=== PATIENT | male | born 1995 | race Caucasian/White ===

== ENCOUNTER 2016-08-02 12:43 | Emergency (ER) | payer OTHER ==
[~2016-08-02] VITALS: Ht 170.2 cm; Wt 110.7 kg
[~2016-08-02 12:43] MED LIST: INSUINJ2 SC; INSUINJ47 SC
[2016-08-02 12:59] VITALS: BP 138/98
[2016-08-02 13:20] LABS: Basophils # (auto) 0 uL; Basophils % (auto) 0.4 % (0.0-2.0); Eosinophils # (auto) 0.1 uL; Eosinophils % (auto) 1.4 % (0.0-7.0); Hematocrit 48.3 % (41.0-53.0); Lymphocytes % (auto) 34.4 % (10.0-50.0); Mean Corpuscular Hemoglobin 31.4 pg (28.0-32.0); Mean Corpuscular Hgb Conc. 35.2 g/dL (32.0-36.0); Mean Corpuscular Volume 89.2 fL (80.0-100.0); Monocytes # (auto) 0.5 uL; Monocytes % (auto) 8.3 % (0.0-12.0); Neutrophils # (auto) 3.2 uL; Neutrophils % (auto) 55.5 % (37.0-80.0); Platelet Count (auto) 227 10^3/uL (140-450); Red Cell Distribution Width 13.1 % (11.6-16.0); White Blood Cell 5.7 10^3/uL (4.4-10.8)
[2016-08-02 13:37] LABS: Albumin 3.8 g/dL (3.4-5.0); BUN/Creatinine Ratio 15.5; Calcium 8.6 mg/dL (8.5-10.1); Potassium 4.1 mmol/L (3.5-5.1)
[2016-08-02 13:40] LABS: Bilirubin, Total 1.1 mg/dL (0.2-1.0); Total Protein 7.3 g/dL (6.4-8.2)
== END 2016-08-02 16:57 | disposition left against medical advice (07) ==
LOC: ER 12:43
DX: R73.9 Hyperglycemia, unspecified (principal); R42 Dizziness and giddiness; Z53.21 Procedure and treatment not carried out due to patient leaving prior to being seen by health care provider
CPT/HCPCS: 36415; 80053; 82962; 85025

== ENCOUNTER 2017-01-10 19:53 | Emergency (ER) | payer OTHER ==
[~2017-01-10] VITALS: Ht 170.2 cm; Wt 110.2 kg
[2017-01-10 21:34] LABS: Basophils # (auto) 0 uL; Basophils % (auto) 0.4 % (0.0-2.0); CONDITION Y; Eosinophils # (auto) 0.1 uL; Eosinophils % (auto) 1.8 % (0.0-7.0); Hematocrit 44.7 % (41.0-53.0); Hemoglobin 15.7 g/dL (13.5-17.5); Lymphocytes # (auto) 1.9 uL; Lymphocytes % (auto) 34.8 % (10.0-50.0); Mean Corpuscular Hemoglobin 30.9 pg (28.0-32.0); Mean Corpuscular Hgb Conc. 35.2 g/dL (32.0-36.0); Mean Corpuscular Volume 87.8 fL (80.0-100.0); Mean Platelet Volume 8.1 fL (6.9-10.8); Monocytes # (auto) 0.5 uL; Monocytes % (auto) 8.9 % (0.0-12.0); Neutrophils % (auto) 54.1 % (37.0-80.0); Platelet Count (auto) 223 10^3/uL (140-450); Red Cell Distribution Width 13.8 % (11.8-14.3); White Blood Cell 5.6 10^3/uL (4.4-10.8)
[2017-01-10 21:58] LABS: Albumin 3.6 g/dL (3.4-5.0); BUN/Creatinine Ratio 13.1; Bilirubin, Total 0.5 mg/dL (0.2-1.0); Calcium 8.6 mg/dL (8.5-10.1); Potassium 4.5 mmol/L (3.5-5.1); Total Protein 7.3 g/dL (6.4-8.2)
[2017-01-10] MEDS ORDERED: InsuLIN REG 1unit/0.01ml Soln (100units/ml) ONE (22:28)
[2017-01-10] MEDS ORDERED: InsuLIN REG 1unit/0.01ml Soln (100units/ml) IV ONE (22:30)
[2017-01-10] MEDS ORDERED: SODIUM CHLORIDE 0.9% 1,000 ML IV ONE ×2 (22:45→23:00)
[2017-01-11 03:02] VITALS: BP 154/91
[2017-01-11] MEDS ORDERED: LEVOFLOXACIN 500MG 100 ML IV ONE (03:30)
== END 2017-01-11 03:56 | disposition home or self-care (01) ==
LOC: ER 20:05
DX: J06.9 Acute upper respiratory infection, unspecified (principal); E11.65 Type 2 diabetes mellitus with hyperglycemia; R10.9 Unspecified abdominal pain; K21.9 Gastro-esophageal reflux disease without esophagitis; Z88.0 Allergy status to penicillin
CPT/HCPCS: 36415; 74176; 80053; 82150; 82962; 83690; 85025; 96361; 96365; 96375; 99285; J1815; J1956; J7030

== ENCOUNTER 2017-07-18 18:58 | Emergency (ER) | payer MEDICAID, OTHER ==
[~2017-07-18] VITALS: Ht 170.2 cm; Wt 110.7 kg
[2017-07-18 20:36] VITALS: BP 153/87
== END 2017-07-18 23:12 | disposition home or self-care (01) ==
LOC: ER 19:01
DX: S43.025A Posterior dislocation of left humerus, initial encounter (principal); K21.9 Gastro-esophageal reflux disease without esophagitis; E11.9 Type 2 diabetes mellitus without complications; Z79.4 Long term (current) use of insulin; Z88.0 Allergy status to penicillin; W19.XXXA Unspecified fall, initial encounter; Y93.89 Activity, other specified; Y92.89 Other specified places as the place of occurrence of the external cause; Y99.8 Other external cause status
CPT/HCPCS: 23650; 73020; 73030

== ENCOUNTER → 2019-12-05 | Emergency (ER) | payer MEDICAID ==
[~2019-12-05] VITALS: Ht 172.7 cm; Wt 105.2 kg
[~2019-12-05] MED LIST changes: +MORPHINE SULFATE 4 MG/ML SYR/VIAL IV ONE; +ONDANSETRON HCL 4 MG/2 ML VIAL IV ONE
[2019-12-05 23:05] LABS: Urine Bacteria NONE SEEN /hpf (None Seen); Urine Blood Negative /uL (Negative); Urine Specific Gravity 1.032 (1.001-1.035); Urine WBC <1 /hpf (0 - 3)
[2019-12-05 23:41] LABS: Basophils # (auto) 0 10 ^3/uL (0-0.2); Basophils % (auto) 0.8 % (0.0-2.0); Eosinophils # (auto) 0.1 10 ^3/uL (0-0.8); Eosinophils % (auto) 1.8 % (0.0-7.0); Hematocrit 45.6 % (41.0-53.0); Hemoglobin 16.1 g/dL (13.5-17.5); Lymphocytes # (auto) 2.1 10 ^3/uL (0.4-5.4); Lymphocytes % (auto) 43.7 % (10.0-50.0); Mean Corpuscular Hemoglobin 33.9 pg (28.0-32.0); Mean Corpuscular Hgb Conc. 35.3 g/dL (32.0-36.0); Mean Corpuscular Volume 95.9 fL (80.0-100.0); Monocytes # (auto) 0.4 10 ^3/uL (0-1.3); Neutrophils # (auto) 2.2 10 ^3/uL (1.6-8.6); Neutrophils % (auto) 44.7 % (37.0-80.0); Nucleated Red Blood Cells % 0.1 %; Platelet Count (auto) 174 10^3/uL (140-450); Red Blood Cells 4.76 10^6/uL (4.5-5.90); Red Cell Distribution Width 14.5 % (11.8-14.3); White Blood Cell 4.9 10^3/uL (4.4-10.8)
[2019-12-05 23:58] LABS: Albumin 3.6 g/dL (3.4-5.0); BUN/Creatinine Ratio 14.5; Calcium 8.5 mg/dL (8.5-10.1); Potassium 3.8 mmol/L (3.5-5.1)
[2019-12-06] LABS: Bilirubin, Total 0.7 mg/dL (0.2-1.0); Total Protein 7.1 g/dL (6.4-8.2)
[2019-12-06 02:00] VITALS: BP 114/72
== END | disposition home or self-care (01) ==
LOC: ER 21:22
DX: K58.9 Irritable bowel syndrome, unspecified (principal); E11.65 Type 2 diabetes mellitus with hyperglycemia; Z88.0 Allergy status to penicillin; Z88.8 Allergy status to other drugs, medicaments and biological substances
CPT/HCPCS: 36415; 74176; 80053; 81001; 82150; 83690; 85025; 96374; 96375; 96376; 99284; J2270; J2405

== ENCOUNTER 2022-12-10 08:13 | Inpatient (IN) | payer MEDICAID ==
[~2022-12-10] VITALS: Ht 170.2 cm; Wt 106.5 kg
[~2022-12-10 08:13] MED LIST changes: -MORPHINE SULFATE 4 MG/ML SYR/VIAL IV ONE; -ONDANSETRON HCL 4 MG/2 ML VIAL IV ONE
[2022-12-10 09:00] LABS: Urine Bacteria FEW /hpf (None Seen); Urine Blood Negative /uL (Negative); Urine Clarity Clear (Clear); Urine Color Yellow (Yellow); Urine Mucus FEW (None Seen); Urine Protein, UAD 1+ (Negative); Urine Specific Gravity 1.029 (1.001-1.035); Urine Sperm PRESENT /hpf (None Seen); Urine Urobilinogen Normal (Negative); Urine WBC <1 /hpf (0 - 3); Urine pH 5.5 (5.0-8.0)
[2022-12-10 09:05] LABS: Basophils # (auto) 0.1 10 ^3/uL (0-0.2); Basophils % (auto) 0.7 % (0.0-2.0); Eosinophils # (auto) 0.2 10 ^3/uL (0-0.8); Eosinophils % (auto) 1.8 % (0.0-7.0); Hematocrit 50.1 % (41.0-53.0); Hemoglobin 17.4 g/dL (13.5-17.5); Lymphocytes # (auto) 2.1 10 ^3/uL (0.4-5.4); Lymphocytes % (auto) 23.5 % (10.0-50.0); Mean Corpuscular Hemoglobin 33.2 pg (28.0-32.0); Mean Corpuscular Hgb Conc. 34.7 g/dL (32.0-36.0); Mean Corpuscular Volume 95.5 fL (80.0-100.0); Monocytes # (auto) 0.6 10 ^3/uL (0-1.3); Nucleated Red Blood Cells % 1.2 %; Red Blood Cells 5.24 10^6/uL (4.5-5.90); Red Cell Distribution Width 13.6 % (11.8-14.3); White Blood Cell 8.9 10^3/uL (4.4-10.8)
[2022-12-10 09:27] LABS: Albumin 3.2 g/dL (3.4-5.0); Calcium 9.6 mg/dL (8.5-10.1); Potassium 4.2 mmol/L (3.5-5.1)
[2022-12-10 09:31] LABS: BUN/Creatinine Ratio 10.5 (10.0-20.0); Bilirubin, Total 0.8 mg/dL (0.2-1.0); Total Protein 7.8 g/dL (6.4-8.2)
[2022-12-10] MEDS ORDERED: IBUPROFEN 600 MG TAB PO ONE (10:30)
[2022-12-10 10:45] VITALS: BP 151/119; PULSE 97; RESP 18; TEMP 98.2; O2SAT 100
[2022-12-10] MEDS ORDERED: SODIUM CHLORIDE 0.9% 1,000 ML IV ONE (11:00)
[2022-12-10] MEDS ORDERED: VANCOMYCIN 1GM/250ML 250 ML IV ONE (11:00)
[2022-12-10] MEDS ORDERED: DEXTROSE (50%) 50ML SYRG IV PRN (13:15)
[2022-12-10] MEDS ORDERED: PIPERACILLIN-TAZOB 3.375GM 100 ML IV ONE (13:15)
[2022-12-10] MEDS ORDERED: NITROGLYCERIN 0.4 MG SL TAB SL PRN (13:15)
[2022-12-10] MEDS ORDERED: MORPHINE SULFATE INJ 2 MG/ml SYRG IV PRN ×2 (13:15→14:30)
[2022-12-10] MEDS ORDERED: INSULIN LANTUS (GLARGINE) 1 /0.01ml (100units/ml) SC SCH (14:00)
[2022-12-10 14:23] LABS: INR 1.05 (0.9-1.15); Partial Thromboplastin Time 25.2 SEC (24.5-34.5)
[2022-12-10] MEDS ORDERED: ACETAMINOPHEN 325 MG TAB PO PRN (14:30)
[2022-12-10] MEDS ORDERED: PANTOPRAZOLE 40 MG TAB PO ONE (14:30)
[2022-12-10] MEDS ORDERED: IBUPROFEN 400 MG TAB PO PRN (14:30)
[2022-12-10] MEDS ORDERED: VANCOMYCIN PER PHARMACY 0 MG IV SCH (14:30)
[2022-12-10] MEDS ORDERED: ACCU-CHEK COMFORT CURVE STRIP VI SCH (18:00)
[2022-12-10] MEDS ORDERED: InsuLIN REG 1unit/0.01ml Soln (100units/ml) SC SCH (18:00)
[2022-12-10] MEDS ORDERED: VANCOMYCIN 1GM/250ML 250 ML IV SCH (18:00)
[2022-12-10] MEDS ORDERED: PIPERACILLIN-TAZOB 3.375GM 100 ML IV SCH (19:00)
[2022-12-11] MEDS ORDERED: PANTOPRAZOLE 40 MG TAB PO SCH (10:00)
== END 2022-12-10 15:12 | disposition left against medical advice (07) | DRG 383 ==
LOC: ER 08:13 → OVERFLOW 13:25
PROVIDERS: ADMIT Internal Medicine; ATTEND Internal Medicine
DX: L02.416 Cutaneous abscess of left lower limb (principal); E11.9 Type 2 diabetes mellitus without complications; K21.9 Gastro-esophageal reflux disease without esophagitis; Z53.29 Procedure and treatment not carried out because of patient's decision for other reasons; F17.210 Nicotine dependence, cigarettes, uncomplicated; M10.9 Gout, unspecified; Z88.8 Allergy status to other drugs, medicaments and biological substances; Z88.0 Allergy status to penicillin
CPT/HCPCS: 36415; 73718; 80053; 81001; 82550; 82962; 83036; 85025; 85610; 85730; 87040; 93926; 93971; 96365; 96367; G0378; J1815; J2543

== ENCOUNTER 2022-12-11 18:05 | Inpatient (IN) | payer MEDICAID ==
[~2022-12-11] VITALS: Ht 170.2 cm; Wt 112.0 kg
[2022-12-11] MEDS ORDERED: ONDANSETRON ODT 4 MG TAB PO ONE (20:00)
[2022-12-11] MEDS ORDERED: HYDROmorphone HCL 2 MG/ML VL/or syr IM ONE (20:00)
[2022-12-11 20:49] LABS: Hematocrit 46.2 % (41.0-53.0); Hemoglobin 16.3 g/dL (13.5-17.5); Mean Corpuscular Hemoglobin 33.5 pg (28.0-32.0); Mean Corpuscular Hgb Conc. 35.2 g/dL (32.0-36.0); Mean Corpuscular Volume 95.3 fL (80.0-100.0); Red Blood Cells 4.85 10^6/uL (4.5-5.90); Red Cell Distribution Width 14.1 % (11.8-14.3); White Blood Cell 9.3 10^3/uL (4.4-10.8)
[2022-12-11 20:55] LABS: Albumin 3.4 g/dL (3.4-5.0); Calcium 9.4 mg/dL (8.5-10.1); Potassium 4.2 mmol/L (3.5-5.1)
[2022-12-11 20:58] LABS: Bilirubin, Total 0.5 mg/dL (0.2-1.0); Total Protein 7.1 g/dL (6.4-8.2)
[2022-12-11 21:03] LABS: Band Neutrophils % (manual) 0; Basophils % (manual) 0 (0.0-2.0); Blast Cells 0; Metamyelocytes % 0; Myelocytes % 0; Promyelocytes % 0; Reactive Lymphocytes 0
[2022-12-11] MEDS ORDERED: NITROGLYCERIN 0.4 MG SL TAB SL PRN (22:45)
[2022-12-11] MEDS ORDERED: DEXTROSE (50%) 50ML SYRG IV PRN (22:45)
[2022-12-11] MEDS ORDERED: DOCUSATE SOD 100 MG CAP PO PRN (22:45)
[2022-12-11] MEDS ORDERED: ONDANSETRON HCL 4 MG/2 ML VIAL IV PRN (22:45)
[2022-12-11] MEDS ORDERED: ACETAMINOPHEN 325 MG TAB PO PRN (22:45)
[2022-12-11] MEDS ORDERED: MORPHINE SULFATE INJ 2 MG/ml SYRG IV PRN (22:45)
[2022-12-11] MEDS ORDERED: VANCOMYCIN PER PHARMACY 0 MG IV SCH (22:45)
[2022-12-11] MEDS ORDERED: HYDROcodone-ACET 5/325MG TAB PO PRN (22:45)
[2022-12-11 23:04] LABS: Eosinophils % (manual) 1 (0-7); Lymphocytes % (manual) 38 (10.0-50.0); Monocytes % (manual) 6 (0-12); Platelet Estimate Adequate
[2022-12-11] MEDS ORDERED: VANCOMYCIN 1GM/250ML 250 ML IV ONE (23:30)
[2022-12-12] VITALS (8 sets, daily range): BP systolic 130–151; BP diastolic 91–99; PULSE 74–93; RESP 17–20; TEMP 97.8–98; O2SAT 95–98
[2022-12-12] MEDS ORDERED: HYDROmorphone HCL 2 MG/ML VL/or syr IV ONE
[2022-12-12 05:34] LABS: Albumin 3.2 g/dL (3.4-5.0); BUN/Creatinine Ratio 11.3 (10.0-20.0); Calcium 8.9 mg/dL (8.5-10.1); Potassium 3.9 mmol/L (3.5-5.1)
[2022-12-12 05:37] LABS: Bilirubin, Total 0.5 mg/dL (0.2-1.0)
[2022-12-12] MEDS: SODIUM CHLOR 0.9% PF (SALINE LOCK) 10ML VIAL/SYR IV SCH ×3 (06:09→21:37)
[2022-12-12] MEDS: ACCU-CHEK COMFORT CURVE STRIP VI SCH ×4 (06:13→22:00)
[2022-12-12] MEDS: InsuLIN REG 1unit/0.01ml Soln (100units/ml) SC SCH ×4 (06:18→22:58)
[2022-12-12] MEDS ORDERED: CEFEPIME 1GM/ 50ML 50 ML IV ONE (08:15)
[2022-12-12] MEDS: ZINC SULFATE 220mg CAP or TAB PO SCH (09:34)
[2022-12-12] MEDS: ASCORBIC ACID 500 MG TAB PO SCH ×2 (09:34→21:35)
[2022-12-12 10:21] LABS: Urine Bacteria NONE SEEN /hpf (None Seen); Urine Blood Negative /uL (Negative); Urine Clarity Clear (Clear); Urine Color Yellow (Yellow); Urine Mucus FEW (None Seen); Urine Protein, UAD Negative (Negative); Urine Urobilinogen Normal (Negative); Urine WBC 2 /hpf (0 - 3)
[2022-12-12] MEDS: HYDROmorphone HCL 2 MG/ML VL/or syr IV PRN ×2 (10:26→17:36)
[2022-12-12] MEDS: VANCOMYCIN 1GM/250ML 250 ML IV SCH ×2 (10:26→18:22)
[2022-12-12 10:28] LABS: Alcohol, Urine < 3.0 mg/dL (0-10); Amphetamine Screen, Urine NEGATIVE (NEGATIVE); Barbiturate Scree,Urine NEGATIVE (NEGATIVE); Benzodiazephine Screen, Urine NEGATIVE (NEGATIVE); Cannabinoid Screen, Urine NEGATIVE (NEGATIVE); Cocaine Screen, Urine NEGATIVE (NEGATIVE); Opiate Scree,Urine NEGATIVE (NEGATIVE); Phencyclidine Screen, Urine NEGATIVE (NEGATIVE)
[2022-12-12] MEDS: MEROPENEM 1GM IVPB 100 ML IV SCH ×2 (12:43→22:11)
[2022-12-12 13:29] LABS: Basophils # (auto) 0 10 ^3/uL (0-0.2); Basophils % (auto) 0.4 % (0.0-2.0); Eosinophils # (auto) 0.2 10 ^3/uL (0-0.8); Eosinophils % (auto) 2.1 % (0.0-7.0); Hematocrit 47.3 % (41.0-53.0); Hemoglobin 16.7 g/dL (13.5-17.5); Lymphocytes % (auto) 23.3 % (10.0-50.0); Mean Corpuscular Hemoglobin 33.5 pg (28.0-32.0); Mean Corpuscular Hgb Conc. 35.2 g/dL (32.0-36.0); Monocytes # (auto) 0.6 10 ^3/uL (0-1.3); Monocytes % (auto) 6.9 % (0.0-12.0); Neutrophils # (auto) 5.8 10 ^3/uL (1.6-8.6); Neutrophils % (auto) 67.3 % (37.0-80.0); Nucleated Red Blood Cells % 0.1 %; Red Blood Cells 4.97 10^6/uL (4.5-5.90); Red Cell Distribution Width 13.8 % (11.8-14.3); White Blood Cell 8.6 10^3/uL (4.4-10.8)
[2022-12-12] MEDS: SODIUM CHLORIDE 0.9% 1,000 ML IV SCH (13:38)
[2022-12-12] MEDS ORDERED: CEFEPIME 1GM/ 50ML 50 ML IV SCH (14:00)
[2022-12-12] MEDS: KETOROLAC TROMETH 30 MG/ML 1ML VIAL IV SCH ×2 (14:43→21:36)
[2022-12-12 15:18] LABS: Erythrocyte Sedimentation Rate 18 mm/hr (0-20)
[2022-12-12] MEDS ORDERED: CYANOCOBALAMIN (B-12) 1000 MCG/1 ML VIAL IM ONE (16:45)
[2022-12-12] MEDS ORDERED: LEVOTHYROXINE SODIUM 50 MCG TAB PO ONE (16:45)
[2022-12-13] VITALS (7 sets, daily range): BP systolic 134–154; BP diastolic 75–98; PULSE 75–86; RESP 18–22; TEMP 97.4–98.5; O2SAT 92–100
[2022-12-13] MEDS: VANCOMYCIN 1GM/250ML 250 ML IV SCH ×4 (01:40→22:25)
[2022-12-13] MEDS: SODIUM CHLORIDE 0.9% 1,000 ML IV SCH ×2 (02:50→17:38)
[2022-12-13] MEDS: MEROPENEM 1GM IVPB 100 ML IV SCH ×3 (03:39→19:17)
[2022-12-13] MEDS: KETOROLAC TROMETH 30 MG/ML 1ML VIAL IV SCH ×3 (05:13→21:20)
[2022-12-13] MEDS: SODIUM CHLOR 0.9% PF (SALINE LOCK) 10ML VIAL/SYR IV SCH ×3 (05:16→21:20)
[2022-12-13 06:04] LABS: Potassium 3.9 mmol/L (3.5-5.1)
[2022-12-13] MEDS: ACCU-CHEK COMFORT CURVE STRIP VI SCH ×4 (06:05→21:31)
[2022-12-13] MEDS: InsuLIN REG 1unit/0.01ml Soln (100units/ml) SC SCH ×4 (06:07→21:29)
[2022-12-13] MEDS: LEVOTHYROXINE SODIUM 50 MCG TAB PO SCH (06:07)
[2022-12-13 06:10] LABS: Albumin 2.9 g/dL (3.4-5.0); BUN/Creatinine Ratio 15.4 (10.0-20.0); Bilirubin, Total 0.4 mg/dL (0.2-1.0); Calcium 8.8 mg/dL (8.5-10.1); Total Protein 6.4 g/dL (6.4-8.2)
[2022-12-13 09:05] LABS: Basophils # (auto) 0 10 ^3/uL (0-0.2); Basophils % (auto) 0.5 % (0.0-2.0); Eosinophils # (auto) 0.3 10 ^3/uL (0-0.8); Eosinophils % (auto) 3.1 % (0.0-7.0); Hematocrit 44.8 % (41.0-53.0); Hemoglobin 15.5 g/dL (13.5-17.5); Lymphocytes # (auto) 2.3 10 ^3/uL (0.4-5.4); Lymphocytes % (auto) 26.5 % (10.0-50.0); Mean Corpuscular Hemoglobin 33.4 pg (28.0-32.0); Mean Corpuscular Hgb Conc. 34.7 g/dL (32.0-36.0); Mean Corpuscular Volume 96.2 fL (80.0-100.0); Monocytes # (auto) 0.7 10 ^3/uL (0-1.3); Monocytes % (auto) 7.7 % (0.0-12.0); Neutrophils # (auto) 5.3 10 ^3/uL (1.6-8.6); Neutrophils % (auto) 62.2 % (37.0-80.0); Red Blood Cells 4.65 10^6/uL (4.5-5.90); Red Cell Distribution Width 13.9 % (11.8-14.3); White Blood Cell 8.6 10^3/uL (4.4-10.8)
[2022-12-13] MEDS: ZINC SULFATE 220mg CAP or TAB PO SCH (09:45)
[2022-12-13] MEDS: ASCORBIC ACID 500 MG TAB PO SCH ×2 (09:45→21:19)
[2022-12-13] MEDS: HYDROmorphone HCL 2 MG/ML VL/or syr IV PRN ×3 (09:58→20:45)
[2022-12-14] MEDS: VANCOMYCIN 1GM/250ML 250 ML IV SCH ×4 (02:55→22:11)
[2022-12-14] MEDS: HYDROmorphone HCL 2 MG/ML VL/or syr IV PRN ×6 (02:57→23:39)
[2022-12-14] MEDS: MEROPENEM 1GM IVPB 100 ML IV SCH ×3 (04:16→20:24)
[2022-12-14 05:00] VITALS: BP 161/107; PULSE 83; RESP 19; TEMP 97.5; O2SAT 98
[2022-12-14] MEDS: SODIUM CHLORIDE 0.9% 1,000 ML IV SCH ×2 (05:58→18:50)
[2022-12-14] MEDS: SODIUM CHLOR 0.9% PF (SALINE LOCK) 10ML VIAL/SYR IV SCH ×3 (05:58→22:11)
[2022-12-14] MEDS: KETOROLAC TROMETH 30 MG/ML 1ML VIAL IV SCH (05:59)
[2022-12-14] MEDS: LEVOTHYROXINE SODIUM 50 MCG TAB PO SCH (05:59)
[2022-12-14] MEDS: InsuLIN REG 1unit/0.01ml Soln (100units/ml) SC SCH ×4 (06:27→22:22)
[2022-12-14] MEDS: ACCU-CHEK COMFORT CURVE STRIP VI SCH ×4 (06:33→22:22)
[2022-12-14 08:00] VITALS: BP 146/95; PULSE 82; RESP 20; TEMP 98; O2SAT 96
[2022-12-14] MEDS: ASCORBIC ACID 500 MG TAB PO SCH ×2 (08:56→22:11)
[2022-12-14] MEDS: ZINC SULFATE 220mg CAP or TAB PO SCH (08:56)
[2022-12-14 09:25] VITALS: BP 146/95; PULSE 82; RESP 20; TEMP 98; O2SAT 96
[2022-12-14 12:33] VITALS: BP 150/92; PULSE 77; RESP 22; TEMP 97.8; O2SAT 98
[2022-12-14 16:44] VITALS: BP 145/95; PULSE 89; RESP 22; TEMP 98.2; O2SAT 97
[2022-12-14 22:00] VITALS: BP 150/100; PULSE 96; RESP 22; TEMP 98.6; O2SAT 95
[2022-12-14] MEDS ORDERED: hydrALAZINE HCL 20 MG/ML VL IV PRN (22:30)
[2022-12-15] MEDS: HYDROmorphone HCL 2 MG/ML VL/or syr IV PRN ×7 (03:20→23:37)
[2022-12-15] MEDS: MEROPENEM 1GM IVPB 100 ML IV SCH ×3 (03:21→20:00)
[2022-12-15 05:00] VITALS: BP 140/83; PULSE 81; RESP 20; TEMP 97.8; O2SAT 97
[2022-12-15] MEDS: VANCOMYCIN 1GM/250ML 250 ML IV SCH ×4 (05:19→23:11)
[2022-12-15 05:33] LABS: BUN/Creatinine Ratio 10.6 (10.0-20.0); Calcium 8.7 mg/dL (8.5-10.1); Potassium 3.6 mmol/L (3.5-5.1)
[2022-12-15 05:52] LABS: Hematocrit 43.2 % (41.0-53.0); Hemoglobin 15.2 g/dL (13.5-17.5); Mean Corpuscular Hemoglobin 33.4 pg (28.0-32.0); Mean Corpuscular Hgb Conc. 35.2 g/dL (32.0-36.0); Mean Corpuscular Volume 94.9 fL (80.0-100.0); Red Blood Cells 4.56 10^6/uL (4.5-5.90); Red Cell Distribution Width 13.6 % (11.8-14.3); White Blood Cell 9.4 10^3/uL (4.4-10.8)
[2022-12-15 06:11] LABS: Band Neutrophils % (manual) 0; Basophils % (manual) 0 (0.0-2.0); Blast Cells 0; Metamyelocytes % 0; Promyelocytes % 0; Reactive Lymphocytes 0
[2022-12-15] MEDS: LEVOTHYROXINE SODIUM 50 MCG TAB PO SCH (06:26)
[2022-12-15] MEDS: InsuLIN REG 1unit/0.01ml Soln (100units/ml) SC SCH ×4 (06:28→20:43)
[2022-12-15] MEDS: ACCU-CHEK COMFORT CURVE STRIP VI SCH ×4 (06:29→22:00)
[2022-12-15] MEDS: SODIUM CHLOR 0.9% PF (SALINE LOCK) 10ML VIAL/SYR IV SCH ×3 (06:30→21:30)
[2022-12-15] MEDS: SODIUM CHLORIDE 0.9% 1,000 ML IV SCH (08:10)
[2022-12-15 08:30] VITALS: BP 128/84; PULSE 72; RESP 17; TEMP 98.7; O2SAT 96
[2022-12-15 08:44] LABS: Eosinophils % (manual) 4 (0-7); Lymphocytes % (manual) 17 (10.0-50.0); Monocytes % (manual) 7 (0-12); Myelocytes % 1; Platelet Estimate Adequate
[2022-12-15] MEDS: ZINC SULFATE 220mg CAP or TAB PO SCH (09:37)
[2022-12-15] MEDS: ASCORBIC ACID 500 MG TAB PO SCH ×2 (09:37→20:00)
[2022-12-15 12:30] VITALS: BP 149/93; PULSE 82; RESP 15; TEMP 97.8; O2SAT 97
[2022-12-15 17:37] VITALS: BP 148/99; PULSE 91; RESP 17; TEMP 98; O2SAT 98
[2022-12-16] MEDS: HYDROmorphone HCL 2 MG/ML VL/or syr IV PRN ×7 (02:44→22:31)
[2022-12-16] MEDS: VANCOMYCIN 1GM/250ML 250 ML IV SCH ×4 (02:47→23:10)
[2022-12-16] MEDS: MEROPENEM 1GM IVPB 100 ML IV SCH ×3 (04:35→20:06)
[2022-12-16 05:00] VITALS: BP 142/85; PULSE 102; RESP 22; TEMP 98.6; O2SAT 95
[2022-12-16 05:11] LABS: Basophils # (auto) 0 10 ^3/uL (0-0.2); Basophils % (auto) 0.4 % (0.0-2.0); Eosinophils # (auto) 0.2 10 ^3/uL (0-0.8); Eosinophils % (auto) 1.8 % (0.0-7.0); Hematocrit 46.2 % (41.0-53.0); Hemoglobin 16.5 g/dL (13.5-17.5); Lymphocytes # (auto) 1.9 10 ^3/uL (0.4-5.4); Lymphocytes % (auto) 17.4 % (10.0-50.0); Mean Corpuscular Hemoglobin 33.6 pg (28.0-32.0); Mean Corpuscular Hgb Conc. 35.6 g/dL (32.0-36.0); Mean Corpuscular Volume 94.3 fL (80.0-100.0); Monocytes % (auto) 9.4 % (0.0-12.0); Neutrophils # (auto) 7.6 10 ^3/uL (1.6-8.6); Nucleated Red Blood Cells % 0.1 %; Red Cell Distribution Width 13.5 % (11.8-14.3); White Blood Cell 10.7 10^3/uL (4.4-10.8)
[2022-12-16 05:38] LABS: Calcium 8.8 mg/dL (8.7-10.4)
[2022-12-16 05:41] LABS: BUN/Creatinine Ratio 15.8 (10.0-20.0)
[2022-12-16] MEDS: SODIUM CHLOR 0.9% PF (SALINE LOCK) 10ML VIAL/SYR IV SCH ×3 (05:48→21:59)
[2022-12-16] MEDS: LEVOTHYROXINE SODIUM 50 MCG TAB PO SCH (06:04)
[2022-12-16] MEDS: InsuLIN REG 1unit/0.01ml Soln (100units/ml) SC SCH ×4 (06:08→21:28)
[2022-12-16] MEDS: ACCU-CHEK COMFORT CURVE STRIP VI SCH ×4 (06:21→21:28)
[2022-12-16 08:00] VITALS: BP 135/85; PULSE 93; RESP 21; TEMP 98; O2SAT 95
[2022-12-16] MEDS: CYANOCOBALAMIN 500 MCG TAB PO SCH (09:34)
[2022-12-16] MEDS: ASCORBIC ACID 500 MG TAB PO SCH ×2 (09:34→20:06)
[2022-12-16] MEDS: ZINC SULFATE 220mg CAP or TAB PO SCH (09:34)
[2022-12-16 12:00] VITALS: BP 136/93; PULSE 93; RESP 20; TEMP 98.4; O2SAT 92
[2022-12-16] MEDS ORDERED: ERGOCALCIFEROL 50,000 UNIT(1.25MG) CAP PO SCH (13:30)
[2022-12-16 16:00] VITALS: BP 157/100; PULSE 100; RESP 23; TEMP 98.7; O2SAT 97
[2022-12-16 21:00] VITALS: BP 148/74; PULSE 105; RESP 20; TEMP 97.5; O2SAT 96
[2022-12-17] MEDS: HYDROmorphone HCL 2 MG/ML VL/or syr IV PRN ×3 (01:31→08:52)
[2022-12-17] MEDS: VANCOMYCIN 1GM/250ML 250 ML IV SCH ×3 (02:44→15:34)
[2022-12-17] MEDS: MEROPENEM 1GM IVPB 100 ML IV SCH ×3 (03:58→20:10)
[2022-12-17 04:56] VITALS: BP 129/77; PULSE 84; RESP 22; TEMP 98.7; O2SAT 96
[2022-12-17] MEDS: SODIUM CHLOR 0.9% PF (SALINE LOCK) 10ML VIAL/SYR IV SCH ×3 (06:12→23:26)
[2022-12-17] MEDS: LEVOTHYROXINE SODIUM 50 MCG TAB PO SCH (06:14)
[2022-12-17 06:17] LABS: Basophils # (auto) 0 10 ^3/uL (0-0.2); Basophils % (auto) 0.4 % (0.0-2.0); Eosinophils # (auto) 0.2 10 ^3/uL (0-0.8); Eosinophils % (auto) 2.2 % (0.0-7.0); Hematocrit 48.2 % (41.0-53.0); Hemoglobin 17.2 g/dL (13.5-17.5); Lymphocytes # (auto) 2.4 10 ^3/uL (0.4-5.4); Lymphocytes % (auto) 22.6 % (10.0-50.0); Mean Corpuscular Hemoglobin 33.8 pg (28.0-32.0); Mean Corpuscular Hgb Conc. 35.7 g/dL (32.0-36.0); Mean Corpuscular Volume 94.7 fL (80.0-100.0); Monocytes # (auto) 1.3 10 ^3/uL (0-1.3); Monocytes % (auto) 12.3 % (0.0-12.0); Neutrophils # (auto) 6.5 10 ^3/uL (1.6-8.6); Neutrophils % (auto) 62.5 % (37.0-80.0); Nucleated Red Blood Cells % 0.8 %; Red Blood Cells 5.09 10^6/uL (4.5-5.90); Red Cell Distribution Width 13.5 % (11.8-14.3); White Blood Cell 10.4 10^3/uL (4.4-10.8)
[2022-12-17] MEDS: ACCU-CHEK COMFORT CURVE STRIP VI SCH ×4 (06:19→21:50)
[2022-12-17] MEDS: InsuLIN REG 1unit/0.01ml Soln (100units/ml) SC SCH ×4 (06:19→23:11)
[2022-12-17 06:41] LABS: Alanine Aminotransferase 32 U/L (7-40); Albumin 4.5 g/dL (3.2-4.8); Alkaline Phosphatase 49 U/L (46-116); Aspartate Aminotransferase 20 U/L (13-40); BUN/Creatinine Ratio 11.4 (10.0-20.0); Blood Urea Nitrogen 9 mg/dL (9-23); Calcium 9.8 mg/dL (8.7-10.4); Chloride 98 mmol/L (98-107); Glucose 255 mg/dL (74-106); Potassium 3.8 mmol/L (3.5-5.1); Sodium 134 mmol/L (136-145)
[2022-12-17 06:42] LABS: Total Protein 7.6 g/dL (5.7-8.2)
[2022-12-17] MEDS: CYANOCOBALAMIN 500 MCG TAB PO SCH (08:55)
[2022-12-17] MEDS: ASCORBIC ACID 500 MG TAB PO SCH ×2 (08:55→23:14)
[2022-12-17] MEDS: ZINC SULFATE 220mg CAP or TAB PO SCH (08:55)
[2022-12-17 09:00] VITALS: BP 127/85; PULSE 94; RESP 18; TEMP 98.3; O2SAT 94
[2022-12-17 13:00] VITALS: BP 141/92; PULSE 90; RESP 18; TEMP 98.6; O2SAT 96
[2022-12-17] MEDS: OXYCODONE W/ ACETAMINOPHEN 5/325MG TABLET PO PRN ×2 (14:09→18:11)
[2022-12-17 16:48] VITALS: BP 141/90; PULSE 101; RESP 18; TEMP 97.9; O2SAT 98
[2022-12-17 20:00] VITALS: PULSE 97; RESP 17; O2SAT 93
[2022-12-17] MEDS ORDERED: HYDROmorphone HCL 2 MG TAB PO ONE (21:15)
[2022-12-17 22:00] VITALS: BP 135/81; PULSE 97; RESP 17; TEMP 98.4; O2SAT 93
[2022-12-17] MEDS ORDERED: VANCOMYCIN 1GM/250ML 250 ML IV SCH (23:00)
[2022-12-18] MEDS: MEROPENEM 1GM IVPB 100 ML IV SCH ×3 (04:32→21:21)
[2022-12-18] MEDS: OXYCODONE W/ ACETAMINOPHEN 5/325MG TABLET PO PRN ×4 (04:39→21:30)
[2022-12-18 05:00] VITALS: BP 136/73; PULSE 90; RESP 17; TEMP 98.1; O2SAT 95
[2022-12-18] MEDS: SODIUM CHLOR 0.9% PF (SALINE LOCK) 10ML VIAL/SYR IV SCH ×3 (06:00→23:24)
[2022-12-18 06:45] LABS: Basophils # (auto) 0.1 10 ^3/uL (0-0.2); Basophils % (auto) 0.6 % (0.0-2.0); Eosinophils # (auto) 0.2 10 ^3/uL (0-0.8); Eosinophils % (auto) 2.2 % (0.0-7.0); Hematocrit 48.5 % (41.0-53.0); Hemoglobin 17.4 g/dL (13.5-17.5); Lymphocytes # (auto) 1.9 10 ^3/uL (0.4-5.4); Lymphocytes % (auto) 21.1 % (10.0-50.0); Mean Corpuscular Hemoglobin 33.5 pg (28.0-32.0); Mean Corpuscular Hgb Conc. 35.8 g/dL (32.0-36.0); Mean Corpuscular Volume 93.6 fL (80.0-100.0); Monocytes # (auto) 1.2 10 ^3/uL (0-1.3); Monocytes % (auto) 13.8 % (0.0-12.0); Neutrophils # (auto) 5.6 10 ^3/uL (1.6-8.6); Neutrophils % (auto) 62.3 % (37.0-80.0); Nucleated Red Blood Cells % 0.3 %; Red Blood Cells 5.18 10^6/uL (4.5-5.90); Red Cell Distribution Width 13.5 % (11.8-14.3); White Blood Cell 8.9 10^3/uL (4.4-10.8)
[2022-12-18 06:54] LABS: Alanine Aminotransferase 31 U/L (7-40); Albumin 4.5 g/dL (3.2-4.8); Alkaline Phosphatase 46 U/L (46-116); Anion Gap 8.1 (5-15); Aspartate Aminotransferase 19 U/L (13-40); BUN/Creatinine Ratio 10.1 (10.0-20.0); Blood Urea Nitrogen 7 mg/dL (9-23); Calcium 9.6 mg/dL (8.7-10.4); Carbon Dioxide 27.9 mmol/L (20-30); Chloride 101 mmol/L (98-107); Glucose 208 mg/dL (74-106); Potassium 3.7 mmol/L (3.5-5.1); Sodium 137 mmol/L (136-145)
[2022-12-18 06:55] LABS: Bilirubin, Total 1.3 mg/dL (0.2-1.0); Total Protein 7.5 g/dL (5.7-8.2)
[2022-12-18] MEDS: InsuLIN REG 1unit/0.01ml Soln (100units/ml) SC SCH ×4 (07:00→23:03)
[2022-12-18] MEDS ORDERED: VANCOMYCIN 1GM/250ML 250 ML IV SCH (07:00)
[2022-12-18] MEDS: ACCU-CHEK COMFORT CURVE STRIP VI SCH ×4 (07:04→23:24)
[2022-12-18] MEDS: LEVOTHYROXINE SODIUM 50 MCG TAB PO SCH (07:09)
[2022-12-18 09:00] VITALS: BP 140/96; PULSE 88; RESP 19; TEMP 98.5; O2SAT 97
[2022-12-18] MEDS: ASCORBIC ACID 500 MG TAB PO SCH ×2 (09:50→23:33)
[2022-12-18] MEDS: ZINC SULFATE 220mg CAP or TAB PO SCH (09:50)
[2022-12-18] MEDS: CYANOCOBALAMIN 500 MCG TAB PO SCH (09:50)
[2022-12-18] MEDS: VANCOMYCIN 1GM/250ML 250 ML IV SCH (15:54)
[2022-12-18 16:56] VITALS: BP 142/91; PULSE 102; RESP 19; TEMP 97.3; O2SAT 97
[2022-12-18] MEDS: Juven Fruit Punch Powder PACKET 28.8gm PO SCH (18:00)
[2022-12-18 20:00] VITALS: PULSE 103; RESP 19; O2SAT 93
[2022-12-18 22:00] VITALS: BP 125/76; PULSE 103; RESP 19; TEMP 97.9; O2SAT 95
[2022-12-18] MEDS ORDERED: MORPHINE SULFATE INJ 2 MG/ml SYRG IV PRN (23:30)
[2022-12-19] MEDS: VANCOMYCIN 1GM/250ML 250 ML IV SCH ×2 (00:41→04:00)
[2022-12-19] MEDS: MEROPENEM 1GM IVPB 100 ML IV SCH (04:36)
[2022-12-19 05:00] VITALS: BP 141/87; PULSE 84; RESP 18; TEMP 97.9; O2SAT 94
[2022-12-19 05:59] LABS: Calcium 9.3 mg/dL (8.7-10.4); Chloride 102 mmol/L (98-107); Sodium 135 mmol/L (136-145)
[2022-12-19 06:00] LABS: Anion Gap 7.6 (5-15); Carbon Dioxide 25.4 mmol/L (20-30)
[2022-12-19 06:05] LABS: BUN/Creatinine Ratio 12.1 (10.0-20.0); Blood Urea Nitrogen 8 mg/dL (9-23); Glucose 279 mg/dL (74-106)
[2022-12-19 06:13] LABS: Basophils # (auto) 0.1 10 ^3/uL (0-0.2); Basophils % (auto) 0.8 % (0.0-2.0); Eosinophils # (auto) 0.2 10 ^3/uL (0-0.8); Eosinophils % (auto) 3.1 % (0.0-7.0); Hematocrit 45.4 % (41.0-53.0); Hemoglobin 15.9 g/dL (13.5-17.5); Lymphocytes # (auto) 2.1 10 ^3/uL (0.4-5.4); Lymphocytes % (auto) 29.8 % (10.0-50.0); Mean Corpuscular Hemoglobin 32.8 pg (28.0-32.0); Mean Corpuscular Volume 93.5 fL (80.0-100.0); Monocytes # (auto) 0.8 10 ^3/uL (0-1.3); Monocytes % (auto) 11.9 % (0.0-12.0); Neutrophils # (auto) 3.8 10 ^3/uL (1.6-8.6); Neutrophils % (auto) 54.4 % (37.0-80.0); Nucleated Red Blood Cells % 0.1 %; Red Blood Cells 4.86 10^6/uL (4.5-5.90); Red Cell Distribution Width 13.4 % (11.8-14.3); White Blood Cell 6.9 10^3/uL (4.4-10.8)
[2022-12-19] MEDS: InsuLIN REG 1unit/0.01ml Soln (100units/ml) SC SCH (06:25)
[2022-12-19] MEDS: LEVOTHYROXINE SODIUM 50 MCG TAB PO SCH (06:27)
[2022-12-19] MEDS: SODIUM CHLOR 0.9% PF (SALINE LOCK) 10ML VIAL/SYR IV SCH (06:31)
[2022-12-19] MEDS: ACCU-CHEK COMFORT CURVE STRIP VI SCH (07:27)
[2022-12-19 08:10] VITALS: BP 126/85; PULSE 85; RESP 17; TEMP 98.6
[2022-12-19 08:11] LABS: Triglycerides 58 mg/dL (< 150)
[2022-12-19 08:12] LABS: LDL Cholesterol 69 mg/dL (< 100)
[2022-12-19 08:13] LABS: Cholesterol 103 mg/dL (< 200); HDL Cholesterol 28 mg/dL (40-59)
[2022-12-19 08:25] VITALS: BP 128/85; PULSE 85; RESP 17; TEMP 98.6; O2SAT 99
[2022-12-19] MEDS ORDERED: INSULIN 70/30 1unit/0.01ml Susp (100units/ml) SC SCH (10:00)
[2022-12-19] MEDS ORDERED: PANTOPRAZOLE 40 MG TAB PO SCH (10:00)
[2022-12-19] MEDS: CYANOCOBALAMIN 500 MCG TAB PO SCH (10:21)
[2022-12-19] MEDS: ASCORBIC ACID 500 MG TAB PO SCH (10:21)
[2022-12-19] MEDS: ZINC SULFATE 220mg CAP or TAB PO SCH (10:22)
[2022-12-19] MEDS: Juven Fruit Punch Powder PACKET 28.8gm PO SCH (10:22)
[2022-12-19] MEDS ORDERED: VANCOMYCIN 1GM/250ML 250 ML IV SCH (15:00)
== END 2022-12-19 10:37 | disposition left against medical advice (07) | DRG 351 ==
LOC: ER 18:05 → OVERFLOW 22:51 → CENTRAL 12-12 09:40
PROVIDERS: ADMIT Internal Medicine Geriatric Medicine; ATTEND Internal Medicine Geriatric Medicine
PROC: 0Y9D3ZZ Drainage of Left Upper Leg, Percutaneous Approach (ICD-10-PCS; principal; 2022-12-17)
PROC: 05HB33Z Insertion of Infusion Device into Right Basilic Vein, Percutaneous Approach (ICD-10-PCS; 2022-12-17)
PROC: B54MZZA Ultrasonography of Right Upper Extremity Veins, Guidance (ICD-10-PCS; 2022-12-17)
DX: M60.852 Other myositis, left thigh (principal); L02.416 Cutaneous abscess of left lower limb; E03.9 Hypothyroidism, unspecified; F10.10 Alcohol abuse, uncomplicated; E66.01 Morbid (severe) obesity due to excess calories; E11.9 Type 2 diabetes mellitus without complications; F17.210 Nicotine dependence, cigarettes, uncomplicated; I10 Essential (primary) hypertension; K21.9 Gastro-esophageal reflux disease without esophagitis; Z53.29 Procedure and treatment not carried out because of patient's decision for other reasons; Z83.3 Family history of diabetes mellitus; Z68.39 Body mass index [BMI] 39.0-39.9, adult; Z88.8 Allergy status to other drugs, medicaments and biological substances; Z88.0 Allergy status to penicillin; Z91.148 Patient's other noncompliance with medication regimen for other reason
CPT/HCPCS: 36415; 73706; 75989; 80048; 80053; 80061; 80202; 80307; 81001; 82306; 82550; 82607; 82962; 83605; 83690; 83880; 84443; 84484; 85007; 85025; 85027; 85652; 87081; 87205; 93971; 96365; 96375; G0378; J1815; J1885; J2185; Q0162